=== PATIENT | female | born 2000 | race American Indian/Alaskan Native ===

== ENCOUNTER 2021-07-09 05:21 | Outpatient (CLI) | payer OTHER ==
[2021-07-09 06:15] VITALS: BP 141/71
== END 2021-07-09 08:10 | disposition home or self-care (01) ==
LOC: TRG 05:21 → APU 05:23 → TRG 08:10
DX: O47.1 False labor at or after 37 completed weeks of gestation (principal); Z3A.40 40 weeks gestation of pregnancy
CPT/HCPCS: 59025